=== PATIENT | female | born 1990 | race African-American/Black ===

== ENCOUNTER 2017-06-21 09:28 | Emergency (ER) | payer SELFPAY ==
[2017-06-21] MEDS ORDERED: Ketorolac INJ* 60 MG/2 ML VIAL IM ONE (10:18)
--- NOTE | 2017-06-21 10:26 | ED ---
Throat Pain/Nasal Congestion - HPI Summary HPI Summary: Pt here w/ dental pain - on/off "for a while now" but most recently this past weekend. Did not go to work d/t pain and left early yesterday d/t pain. She does not return to work until Friday and has appt w/ [facility] this coming Friday. She feels part of her tooth broke which triggered most recent pain. Rt side of face felt swollen yesterday. Denies fever , chills, N/V/D, trouble breathing/swallowing, otalgia. - History of Current Complaint Chief Complaint: EDDentalPain Time Seen by Provider: 06/21/17 09:37 Hx Obtained From: Patient, Family/Benefits Assistant - Male partner - Allergies/Home Medications Allergies/Adverse Reactions: Allergies Allergy/AdvReac Type Severity Reaction Status Date / Time No Known Allergies Allergy Verified 11/05/12 20:38 PMH/Surg Hx/FS Hx/Imm Hx Previously Healthy: Yes Endocrine/Hematology History: Reports: Hx Diabetes - gestational Denies: Autoimmune Disease Infectious Disease History: No Infectious Disease History: Denies: Traveled Outside the [place] in Last 30 Days - Family History Known Family History: Positive: None - Social History Occupation: Employed Full-time Lives: With Family Alcohol Use: Weekly Hx Substance Use: Yes Substance Use Type: Reports: Marijuana - recreationally Hx Tobacco Use: No Smoking Status (MU): Never Smoked Tobacco Review of Systems Constitutional: Negative Negative: Fever, Chills Eyes: Negative Negative: Photophobia, Blurred Vision, Diplopia, Drainage, Erythema Positive: Dental Pain. Negative: Sore Throat, Ear Ache, Nasal Discharge Cardiovascular: Negative Respiratory: Negative Gastrointestinal: Negative Positive: no symptoms reported Skin: Negative Negative: Rash Positive: Headache - when tooth pain persists for long periods,develops CLAY . Negative: Weakness, Paresthesia, Numbness, Syncope, Slurred Speech Psychological: Normal All Other Systems Reviewed And Are Negative: Yes Physical Exam Triage Information Reviewed: Yes Vital Signs On Initial Exam: Initial Vitals Temp Pulse Resp BP Pulse Ox 98.2 F 79 20 112/65 100 06/21/17 09:31 06/21/17 09:31 06/21/17 09:31 06/21/17 09:31 06/21/17 09:31 Vital Signs Reviewed: Yes Appearance: Positive: Well-Appearing, No Pain Distress, Well-Nourished Skin: Positive: Warm, Dry Head/Face: Positive: Normal Head/Face Inspection - no edema, NTTP Eyes: Positive: Normal, EOMI, Conjunctiva Clear. Negative: Conjunctiva Inflammed, Discharge ENT: Positive: Normal ENT inspection, Hearing grossly normal, TMs normal. Negative: Pharyngeal erythema, Nasal congestion, Nasal drainage, Tonsillar swelling, Tonsillar exudate Dental: Positive: Gross Decay/Caries @ - mulitple amalgom fillings along teeth of Rt mandible - no surrounding erythema, edema and no drainage observed Neck: Positive: Supple, Nontender, No Lymphadenopathy Respiratory/Lung Sounds: Positive: Clear to Auscultation, Breath Sounds Present. Negative: Stridor Cardiovascular: Positive: Normal Abdomen Description: Positive: Soft Musculoskeletal: Positive: Normal, Strength/ROM Intact Neurological: Positive: Normal, Sensory/Motor Intact, Alert, Oriented to Person Place, Time, CN Intact II-III Psychiatric: Positive: Normal Procedures - Procedure Summary Procedure Summary: #31 w/ fracture/decay at the anterior aspect - pulp observed and TTP - filled w / dycal and set - pt tolerated well Diagnostics - Vital Signs Vital Signs Temp Pulse Resp BP Pulse Ox 06/21/17 09:40 98.6 F 75 18 115/67 100 06/21/17 09:31 98.2 F 79 20 112/65 100 - Laboratory Lab Statement: Any lab studies that have been ordered have been reviewed, and results considered in the medical decision making process. Re-Evaluation - Re-Evaluation First Eval Change: Improved EENT Course/Dx - Diagnoses Provider Diagnoses: Tooth fracture, Pain, dental Discharge - Discharge Plan Condition: Stable Disposition: HOME Prescriptions: Amoxicillin PO (*) [Amoxicillin 500 MG CAP*] 500 mg PO TID #30 cap Patient Education Materials: Toothache (ED) Referrals: No Primary Care Phys,NOPCP [Primary Care Provider] - Additional Instructions: Your tooth was filled with a temporarily material to reduce nerve exposure, reduce pain - if you are too aggressive with this, it will come out. It is advised that you avoid chewing foods - stay hydrated and nourished with liquids such as water, gatorade, soup broth, smoothies, etc. You were also started on antiobiotic as you reported swelling yesterday. You may take ibuprofen 600mg every 6 hours with food for pain as well. Follow-up with dentist Friday as sxcheduled for further evaluation and treatment.
[2017-06-21 10:58] VITALS: BP 115/68
== END 2017-06-21 10:50 | disposition home or self-care (01) ==
LOC: ED 09:28
DX: S02.5XXA Fracture of tooth (traumatic), initial encounter for closed fracture (principal); K08.89 Other specified disorders of teeth and supporting structures; X58.XXXA Exposure to other specified factors, initial encounter; Y92.9 Unspecified place or not applicable
CPT/HCPCS: 96372; 99282; J1885

== ENCOUNTER 2018-05-14 14:40 | Emergency (ER) | payer MEDICAID ==
[2018-05-14 14:53] VITALS: BP 117/75
[2018-05-14] MEDS ORDERED: Benzocaine/Butamben/Tetracain* SPRAY TOPICAL ONE (15:18)
[2018-05-14] MEDS ORDERED: Lidocaine 1% MPF wEPI 200,000* 30 ML SDV INJ ONE (15:19)
--- NOTE | 2018-05-14 15:27 | ED ---
Throat Pain/Nasal Congestion - HPI Summary HPI Summary: 27 year female presented with potential dental abscess for the past 2 days. She states that she has swelling to left left upper jaw. She started she tried to follow up with a dentist but was not able to. She denies any fevers. She denies any pain with eye movement or swelling in her eyes. She denies any chest pain or SOB. She denies any new fracture to the tooth. She states the swelling has been increasing. She states been trying to pop it but nothing has been coming out. - History of Current Complaint Chief Complaint: UCDentalProblem Time Seen by Provider: 05/14/18 14:59 - Allergies/Home Medications Allergies/Adverse Reactions: Allergies Allergy/AdvReac Type Severity Reaction Status Date / Time No Known Allergies Allergy Verified 11/05/12 20:38 Home Medications: Home Medications Acetaminophen [Tylenol] 325 mg PO 05/14/18 [History] PMH/Surg Hx/FS Hx/Imm Hx Endocrine/Hematology History: Reports: Hx Diabetes - gestational Cardiovascular History: Denies: Hx Hypertension Infectious Disease History: No Infectious Disease History: Denies: Traveled Outside the [place] in Last 30 Days - Family History Known Family History: Positive: None - Social History Alcohol Use: Weekly Hx Substance Use: Yes Substance Use Type: Reports: Marijuana Hx Tobacco Use: No Smoking Status (MU): Current Every Day Smoker Review of Systems Negative: Fever Positive: Dental Pain Negative: Chest Pain Negative: Shortness Of Breath All Other Systems Reviewed And Are Negative: Yes Physical Exam Triage Information Reviewed: Yes Vital Signs On Initial Exam: Initial Vitals Temp Pulse Resp BP Pulse Ox 97.5 F 83 16 117/75 99 05/14/18 14:47 05/14/18 14:47 05/14/18 14:47 05/14/18 14:47 05/14/18 14:47 Vital Signs Reviewed: Yes Appearance: Positive: Well-Appearing Skin: Positive: Warm, Dry Head/Face: Positive: Normal Head/Face Inspection Eyes: Positive: Normal, EOMI, AJ, Conjunctiva Clear ENT: Positive: Normal ENT inspection, Pharynx normal, TMs normal Dental: Positive: Percussion Tenderness @ - 12, 12, Abscess @ - 11, 12 posterior Respiratory/Lung Sounds: Positive: Clear to Auscultation, Breath Sounds Present Cardiovascular: Positive: Normal, RRR Musculoskeletal: Positive: Normal Neurological: Positive: Normal Psychiatric: Positive: Normal Procedures - Incision and Drainage mouth Site: left upper mouth Anesthesia: Topical, Local Instrument(s): Needle Diagnostics - Vital Signs Vital Signs Temp Pulse Resp BP Pulse Ox 05/14/18 14:47 97.5 F 83 16 117/75 99 - Laboratory Lab Statement: Any lab studies that have been ordered have been reviewed, and results considered in the medical decision making process. EENT Course/Dx - Course Course Of Treatment: 27 year female presented with potential dental abscess for the past 2 days. She states that she has swelling to left left upper jaw. She started she tried to follow up with a dentist but was not able to. She denies any fevers. She denies any pain with eye movement or swelling in her eyes. She denies any chest pain or SOB. She denies any new fracture to the tooth. She states the swelling has been increasing. She states been trying to pop it but nothing has been coming out. on exam has dental abscess posterior aspect of tooth 11-12. placed lidocaine in area and attempted needle aspiration and got 1cc of pus drainage. will place on augmentin. patient understand and agrees with plan. - Differential Diagnoses Differential Diagnoses: Dental Abscess, Dental Caries, Fractured Tooth - Diagnoses Provider Diagnoses: Dental abscess Discharge - Sign-Out/Discharge Documenting (check all that apply): Patient Departure - Discharge Plan Condition: Good Disposition: HOME Prescriptions: Amoxicillin/Clavulanate TAB* [Augmentin TAB 875*] 875 mg PO BID #20 tab oxyCODONE/Acetamin 5/325 MG* [Percocet 5/325 TAB*] 1 tab PO Q6H PRN #12 tab MDD 4 PRN Reason: Pain Patient Education Materials: Dental Abscess (ED) Referrals: [facility] [Outside] Additional Instructions: Take antibiotic twice a day for 10 days Use ibuprofen every 6 hours and narcotic for break through pain at night as needed every 6 hours Avoid hard, crunchy food until seen by dentist Follow up with dentist as soon as possible Return to ED if develop fever, shortness of breath, pain with eye movement or swelling around eye Establish care with primary care physician - Billing Disposition and Condition Condition: GOOD Disposition: Home Images - Images Dental: 1 - dental abscess behind
[2018-05-14] MEDS ORDERED: Ketorolac INJ* 30 MG/ML 1 ML VIAL IM ONE (15:57)
== END 2018-05-14 16:31 | disposition home or self-care (01) ==
LOC: UCEAST 14:40
DX: K04.7 Periapical abscess without sinus (principal); F17.200 Nicotine dependence, unspecified, uncomplicated
CPT/HCPCS: 10160; 41800; 87070; 87077; 87205; 96372; 99211; A9270-GY; G0463; J1885; J2001

== ENCOUNTER 2018-05-30 12:36 | Emergency (ER) | payer SELFPAY ==
[2018-05-30 12:54] VITALS: BP 113/74
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
--- NOTE | 2018-05-30 13:43 | RAD ---
INDICATION: Right lower rib trauma. COMPARISON: Comparison is made with a prior chest x-ray study from May 13, 2015. TECHNIQUE: 4 views of the right ribs and dual-energy PA views of the chest were obtained. FINDINGS: No fracture or significant focal osseous abnormality is seen. The heart is within normal limits in size. The lungs are clear. There is no evidence for pneumothorax or pleural effusion. IMPRESSION: NO EVIDENCE FOR FRACTURE.
--- NOTE | 2018-05-30 13:45 | RAD ---
INDICATION: Pelvis injury. TECHNIQUE: An AP view of the pelvis was obtained. FINDINGS: The bones are in normal alignment. No fracture is seen. Joint spaces appear maintained. IMPRESSION: NO EVIDENCE FOR FRACTURE.
== END 2018-05-30 14:04 | disposition home or self-care (01) ==
LOC: UCEAST 12:36
DX: S20.20XA Contusion of thorax, unspecified, initial encounter (principal); S70.01XA Contusion of right hip, initial encounter; W50.0XXA Accidental hit or strike by another person, initial encounter; Y93.9 Activity, unspecified; Y92.9 Unspecified place or not applicable; Y99.0 Civilian activity done for income or pay; F17.210 Nicotine dependence, cigarettes, uncomplicated
CPT/HCPCS: 72170; 99212; G0463

== ENCOUNTER 2018-06-01 09:49 | Emergency (ER) | payer SELFPAY ==
[2018-06-01 09:55] VITALS: BP 125/65
[2018-06-01] MEDS ORDERED: Naproxen TAB* 250 MG PO ONE (11:37)
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
== END 2018-06-01 12:43 | disposition home or self-care (01) ==
LOC: ED 09:49
DX: S20.211A Contusion of right front wall of thorax, initial encounter (principal); W50.0XXA Accidental hit or strike by another person, initial encounter; Y93.01 Activity, walking, marching and hiking; Y92.9 Unspecified place or not applicable; F17.210 Nicotine dependence, cigarettes, uncomplicated
CPT/HCPCS: 99282; A9270-GY

== ENCOUNTER 2018-10-29 15:11 | Emergency (ER) | payer SELFPAY ==
[2018-10-29] MEDS ORDERED: Amoxicillin/Clavulanate TAB* 875 MG PO ONE (16:58)
--- NOTE | 2018-10-29 17:03 | ED ---
Throat Pain/Nasal Congestion - HPI Summary HPI Summary: 28-year-old female presents with dental abscess for the past couple days. She states she has had an abscess in the same area that was drained a couple months ago. She denies any fevers. She admits to dental pain on that side. No chest pain or shortness of breath. no sore throat. She states she is trying to follow up with her dentist but they're not currently taking her insurance. She has no medical conditions. - History of Current Complaint Chief Complaint: EDDentalPain Time Seen by Provider: 10/29/18 15:26 - Allergies/Home Medications Allergies/Adverse Reactions: Allergies Allergy/AdvReac Type Severity Reaction Status Date / Time No Known Allergies Allergy Verified 10/29/18 15:19 PMH/Surg Hx/FS Hx/Imm Hx Endocrine/Hematology History: Reports: Hx Diabetes - gestational Denies: Hx Thyroid Disease Cardiovascular History: Denies: Hx Hypertension Respiratory History: Denies: Hx Asthma, Hx Chronic Obstructive Pulmonary Disease (COPD) GI History: Denies: Hx Ulcer Infectious Disease History: No Infectious Disease History: Denies: Hx Hepatitis, Hx Human Immunodeficiency Virus (HIV), Traveled Outside the [place] in Last 30 Days - Family History Known Family History: Positive: None Negative: Hypertension - Social History Alcohol Use: Occasionally Hx Substance Use: Yes Substance Use Type: Reports: Marijuana Hx Tobacco Use: No Smoking Status (MU): Current Every Day Smoker Type: Cigarettes Review of Systems Negative: Fever Positive: Dental Pain Negative: Chest Pain Negative: Shortness Of Breath All Other Systems Reviewed And Are Negative: Yes Physical Exam Triage Information Reviewed: Yes Vital Signs On Initial Exam: Initial Vitals Temp Pulse Resp BP Pulse Ox 97.5 F 83 19 142/76 99 10/29/18 15:14 10/29/18 15:14 10/29/18 15:14 10/29/18 15:14 10/29/18 15:14 Vital Signs Reviewed: Yes Appearance: Positive: Well-Appearing Skin: Positive: Warm, Dry Head/Face: Positive: Normal Head/Face Inspection Eyes: Positive: Normal, EOMI, AJ, Conjunctiva Clear ENT: Positive: Normal ENT inspection, Pharynx normal, TMs normal Dental: Positive: Gross Decay/Caries @ - throughout, Other - abscess to upper mouth behind left teeth Neck: Positive: Supple, Nontender, No Lymphadenopathy Respiratory/Lung Sounds: Positive: Clear to Auscultation, Breath Sounds Present Cardiovascular: Positive: Normal, RRR Musculoskeletal: Positive: Normal Neurological: Positive: Normal Psychiatric: Positive: Normal Procedures - Incision and Drainage mouth Site: upper mouth Anesthesia: Topical Instrument(s): Needle Diagnostics - Vital Signs Vital Signs Temp Pulse Resp BP Pulse Ox 10/29/18 15:14 97.5 F 83 19 142/76 99 - Laboratory Lab Statement: Any lab studies that have been ordered have been reviewed, and results considered in the medical decision making process. EENT Course/Dx - Course Course Of Treatment: 28-year-old female presents with dental abscess for the past couple days. She states she has had an abscess in the same area that was drained a couple months ago. She denies any fevers. She admits to dental pain on that side. No chest pain or shortness of breath. no sore throat. She states she is trying to follow up with her dentist but they're not currently taking her insurance. She has no medical conditions. On exam has abscess of left upper mouth behind teeth. placed cetacaine and I&D the area. Will place on Augmentin. Gave short course of pain medication. Patient understands and agrees with plan. - Differential Diagnoses Differential Diagnoses: Dental Abscess, Dental Caries, Fractured Tooth - Diagnoses Provider Diagnoses: Dental abscess Discharge - Sign-Out/Discharge Documenting (check all that apply): Patient Departure - Discharge Plan Condition: Good Disposition: HOME Prescriptions: Amoxicillin/Clavulanate TAB* [Augmentin TAB 875*] 875 mg PO BID #19 tab traMADol TAB* [Ultram*] 50 mg PO Q12H PRN #4 tab MDD 2 PRN Reason: Pain Patient Education Materials: Dental Abscess (ED) Referrals: No Primary Care Phys,NOPCP [Primary Care Provider] - Additional Instructions: Take antibiotic 2 times a day for 10 days Use ibuprofen or tyenlol for pain every 6 hours, use tramadol every 12 hours as needed for break through pain establish care with primary Follow up with dentist as soon as possible Return to ED if develop any new or worsening symptoms - Billing Disposition and Condition Condition: GOOD Disposition: Home
[2018-10-29 17:30] VITALS: BP 138/74
== END 2018-10-29 17:29 | disposition home or self-care (01) ==
LOC: ED 15:11
DX: K04.7 Periapical abscess without sinus (principal); F17.210 Nicotine dependence, cigarettes, uncomplicated; K08.89 Other specified disorders of teeth and supporting structures
CPT/HCPCS: 87070; 87076; 87205; 99282; A9270-GY

== ENCOUNTER 2019-02-12 08:47 | Emergency (ER) | payer MEDICAID ==
[2019-02-12] MEDS ORDERED: Benzocaine/Butamben/Tetracain (CETACAINE - SINGLE USE) 5 gm TOPICAL ONE (09:06)
--- NOTE | 2019-02-12 09:09 | ED ---
Throat Pain/Nasal Congestion - HPI Summary HPI Summary: Pt. is a 28 y.o female who presents to the ER for dental pain/abscess. Pt. states she was seen in the ER 3 months ago and had a dental abscess drained. She was rx augmentin but did not get it filled bc it was too expensive. Pt. states her pain eventually went away until this week. Pt. notes pain started again this past week. Pt .states she was able to get augmentin filled but states the pills are too big for her to swallow. No past medical hx. Denies fever, chills, N/V, facial swelling. Sxs are mild in severity. No current modifying factors. - History of Current Complaint Chief Complaint: EDDentalPain Time Seen by Provider: 02/12/19 08:59 Hx Obtained From: Patient - Allergies/Home Medications Allergies/Adverse Reactions: Allergies Allergy/AdvReac Type Severity Reaction Status Date / Time No Known Allergies Allergy Verified 02/12/19 08:56 PMH/Surg Hx/FS Hx/Imm Hx Previously Healthy: Yes Endocrine/Hematology History: Reports: Hx Diabetes - gestational Denies: Hx Thyroid Disease Cardiovascular History: Denies: Hx Hypertension Respiratory History: Denies: Hx Asthma, Hx Chronic Obstructive Pulmonary Disease (COPD) GI History: Denies: Hx Ulcer Infectious Disease History: No Infectious Disease History: Denies: Hx Hepatitis, Hx Human Immunodeficiency Virus (HIV), Traveled Outside the [place] in Last 30 Days - Family History Known Family History: Positive: None Negative: Hypertension - Social History Alcohol Use: Occasionally Hx Substance Use: Yes Substance Use Type: Reports: Marijuana Hx Tobacco Use: No Smoking Status (MU): Current Every Day Smoker Type: Cigarettes Review of Systems Constitutional: Negative Negative: Fever, Chills Positive: Dental Pain Gastrointestinal: Negative Negative: Abdominal Pain, Vomiting, Nausea Skin: Negative Negative: Rash All Other Systems Reviewed And Are Negative: Yes Physical Exam Triage Information Reviewed: Yes Vital Signs On Initial Exam: Initial Vitals Temp Pulse Resp BP Pulse Ox 97.3 F 97 16 136/82 99 02/12/19 08:49 02/12/19 08:49 02/12/19 08:49 02/12/19 08:49 02/12/19 08:49 Vital Signs Reviewed: Yes Appearance: Positive: Well-Appearing - Pt. sitting on bed in NAD. Talkative. Skin: Positive: Warm, Dry Head/Face: Positive: Normal Head/Face Inspection Eyes: Positive: Normal, EOMI, AJ, Conjunctiva Clear ENT: Positive: Other - No facial swelling, no submandibular edema, no trismus. Pain to palpation to left upper first molar. Roughly 1.5cm likely abscess to soft palate, tender on palpation. Neck: Positive: Supple, Nontender, No Lymphadenopathy Neurological: Positive: Normal, CN Intact II-III Psychiatric: Positive: Affect/Mood Appropriate Procedures - Procedure Summary Procedure Summary: Abscess I and D: Consent obtained. 1.5 cm dental abscess, was anesthetized with Cetacaine spray and 2 cm of purulent matter was aspirated with an 18-gauge needle. Patient declined incision to remove remaining purulent matter. Patient tolerated her. Diagnostics - Vital Signs Vital Signs Temp Pulse Resp BP Pulse Ox 02/12/19 08:49 97.3 F 97 16 136/82 99 - Laboratory Lab Statement: Any lab studies that have been ordered have been reviewed, and results considered in the medical decision making process. EENT Course/Dx - Course Course Of Treatment: Patient presenting for dental abscess. She is afebrile and well-appearing. No evidence of Jet's angina. Abscessed drained as noticed above. Will place patient on penicillin. Strongly advised her to see her dentist as soon as possible. Naproxen for pain. We'll return to the ER symptoms change or worsen. - Differential Diagnoses Differential Diagnoses: Dental Abscess, Dental Caries - Diagnoses Provider Diagnoses: Dental abscess Discharge - Sign-Out/Discharge Documenting (check all that apply): Patient Departure Patient Received Moderate/Deep Sedation with Procedure: No - Discharge Plan Condition: Improved Disposition: HOME Prescriptions: Naproxen [Naproxen 500 mg tab] 500 mg PO BID #20 tablet Penicillin V Potassium 500 mg PO QID #40 tablet Patient Education Materials: Dental Abscess (ED) Forms: *Work Release Referrals: [facility] [Outside] Additional Instructions: Please see your dentist as soon as possible Take medication as directed Return to ER for fever, facial swelling, difficulty swallowing or if concerned - Billing Disposition and Condition Condition: IMPROVED Disposition: Home
[2019-02-12] MEDS ORDERED: Naproxen TAB* 250 MG PO ONE (09:40)
[2019-02-12 10:10] VITALS: BP 118/79
== END 2019-02-12 10:09 | disposition home or self-care (01) ==
LOC: EDBD → ED 08:47
DX: K04.7 Periapical abscess without sinus (principal)
CPT/HCPCS: 41800; 99282; A9270-GY

== ENCOUNTER 2019-02-15 22:21 | Emergency (ER) | payer MEDICAID ==
[2019-02-15 22:26] VITALS: BP 133/83
--- NOTE | 2019-02-16 01:58 | ED ---
Complex/Multi-Sys Presentation - HPI Summary HPI Summary: The patient is a 28 year old female who is presenting to [place] [facility] with a chief complaint of a swollen upper region in the interior of her mouth. She describes that region as painful and discusses her previous drainage of the region by an ED physician. The previous drainage was not able to be completed due to the pain from the procedure. Patient has not seen a dentist for her current symptoms. After the drainage, the patient was prescribed Naproxen and Pen VK as per triage reports. The pain in the interior of the mouth has worsened since she received that initial drainage and her medication. The symptoms are aggravated by nothing. Symptoms alleviated by nothing. The pain is rated to be 10/10 in severity. - History Of Current Complaint Chief Complaint: EDGeneral Time Seen by Provider: 02/15/19 23:48 Hx Obtained From: Patient Onset/Duration: Gradual Onset Timing: Constant Aggravating Factor(s): Nothing Alleviating Factor(s): Nothing - Allergies/Home Medications Allergies/Adverse Reactions: Allergies Allergy/AdvReac Type Severity Reaction Status Date / Time No Known Allergies Allergy Verified 02/12/19 08:56 PMH/Surg Hx/FS Hx/Imm Hx Endocrine/Hematology History: Reports: Hx Diabetes - gestational Denies: Hx Thyroid Disease Cardiovascular History: Denies: Hx Hypertension Respiratory History: Denies: Hx Asthma, Hx Chronic Obstructive Pulmonary Disease (COPD) GI History: Denies: Hx Ulcer - Immunization History Date of Tetanus Vaccine: unk Date of Influenza Vaccine: none Infectious Disease History: No Infectious Disease History: Denies: Hx Hepatitis, Hx Human Immunodeficiency Virus (HIV), Traveled Outside the [place] in Last 30 Days - Family History Known Family History: Negative: Hypertension - Social History Alcohol Use: Occasionally Hx Substance Use: Yes Substance Use Type: Reports: None Hx Tobacco Use: No Smoking Status (MU): Light Every Day Tobacco Smoker Type: Cigarettes Review of Systems Constitutional: Negative Eyes: Negative ENT: Negative Cardiovascular: Negative Respiratory: Negative Gastrointestinal: Negative Genitourinary: Negative Musculoskeletal: Other - Pain in the interior of the mouth Skin: Other - Swollen upper region of the interior of the mouth Neurological: Negative Psychological: Normal All Other Systems Reviewed And Are Negative: Yes Physical Exam - Summary Physical Exam Summary: Appearance: Well-appearing, Well-nourished, lying in bed comfortable Skin: Warm, dry, no obvious rash Eyes: sclera anicteric, no conjunctival pallor Oral Exam: Swelling of the interior hard palate on the left side; That feels fluctuant ENT: mucous membranes moist Neck: deferred Respiratory: No signs of respiratory distress Cardiovascular: Appears well perfused, pulses are nml Abdomen: deferred Musculoskeletal: Moving all 4 extremities without obvious discomfort Neurological: Awake and alert, mentation is normal, speech is fluent and appropriate Psychiatric: affect is normal, does not appear anxious or depressed Triage Information Reviewed: Yes Vital Signs On Initial Exam: Initial Vitals Temp Pulse Resp BP Pulse Ox 98.6 F 90 16 133/83 97 02/15/19 22:23 02/15/19 22:23 02/15/19 22:23 02/15/19 22:23 02/15/19 22:23 Vital Signs Reviewed: Yes Procedures - Procedure Summary Procedure Summary: Drainage of dental abscess Anesthesia: nasopalatine block with 1.5 mL's 2% lidocaine with epinephrine with good effect Procedure: The abscess was incised with an 11 blade and a large amount of pus was drained Diagnostics - Vital Signs Vital Signs Temp Pulse Resp BP Pulse Ox 02/16/19 00:51 98.6 F 90 16 133/83 97 02/15/19 22:23 98.6 F 90 16 133/83 97 - Laboratory Lab Statement: Any lab studies that have been ordered have been reviewed, and results considered in the medical decision making process. Complex Multi-Symp Course/Dx Course Of Treatment: The patient is a 28 yaer old female who is presenting to the [facility] with a chief complaint of a swollen upper region of the interior of her mouth. She had the region previously drained in the ED before, however the pain had worsened and the region remained swollen. We did an incision and drainage of the location as stated in the procedural note. Upon receiving the drainage protocol, the patient was feeling better. The patient was discharged home with a diagnosis of dental abscess. - Diagnoses Provider Diagnoses: Dental abscess Discharge - Sign-Out/Discharge Documenting (check all that apply): Patient Departure - Discharge Home Patient Received Moderate/Deep Sedation with Procedure: No - Discharge Plan Condition: Good Disposition: HOME Patient Education Materials: Dental Abscess (ED) Referrals: No Primary Care Phys,NOPCP [Primary Care Provider] - Additional Instructions: We got good drainage of the abscess, that and the antibiotic should clear up this infection but you still need to see a dentist to have the tooth definitively treated or it's going to recur. - Billing Disposition and Condition Condition: GOOD Disposition: Home - Attestation Statements Document Initiated by Mary: Yes Documenting Scribe: Santosh Prasad Provider For Whom Mary is Documenting (Include Credential): Dr. Alfred Perez Scribe Attestation: I, Santosh Prasad, scribed for Dr. Alfred Perez on 02/17/19 at 0507. Scribe Documentation Reviewed: Yes Provider Attestation: The documentation as recorded by the Santosh omer accurately reflects the service I personally performed and the decisions made by me, Dr. Alfred Perez Status of Scribe Document: Viewed
== END 2019-02-16 00:51 | disposition home or self-care (01) ==
LOC: ED 22:21
DX: K04.7 Periapical abscess without sinus (principal); F17.210 Nicotine dependence, cigarettes, uncomplicated
CPT/HCPCS: 41800; 99281